=== PATIENT | female | born 1955 | race African-American/Black ===

== ENCOUNTER 2020-10-05 15:46 | Emergency (ER) | payer OTHER, SELFPAY ==
[2020-10-05 16:28] LABS: Bilirubin Moderate (Negative); Blood, Urine Trace (Negative); Clarity Slightly Cloudy (Clear); Glucose, Urine (Dipstick) Negative (Negative); Ketone, Urine Trace mg/dL (Negative); Leukocyte Trace (Negative); Nitrite Negative (Negative); Protein, Urine (Dipstick) > or equal to 300 mg/dL (Neg-Trace); Urobilinogen > or = 8.0 mg/dL (Less than 2)
[2020-10-05 16:43] LABS: Specific Gravity, Urine 1.035 (1.002-1.036)
[2020-10-05 16:45] LABS: Bacteria/HPF Rare-Few HPF (None Seen); RBC/HPF 0-3 HPF (0-3)
== END 2020-10-05 17:01 | disposition home or self-care (01) ==
LOC: BURERS 15:46
DX: N39.0 Urinary tract infection, site not specified (principal); I10 Essential (primary) hypertension
CPT/HCPCS: 81003; 81015; 99283

== ENCOUNTER 2021-04-24 14:40 | Emergency (ER) | payer OTHER ==
[~2021-04-24 14:40] MED LIST: Iopamidol 370 76% 100 ML VIAL ONE
[2021-04-24] MEDS ORDERED: Nitroglycerin 0.4 MG TAB 1 EACH ONE ×3 (14:59→15:49)
[2021-04-24 15:17] LABS: #Lymphocytes 1.1 thou/uL (1.20-3.40); #Monocytes 0.5 thou/uL (0.11-0.59); #Neutrophils 4.3 thou/uL (1.40-6.50); %Basophils 0.5 % (0.0-1.0); %Eosinophils 0.3 % (0.0-10.0); %Monocytes 7.8 % (0.0-10.0); %Neutrophils 73.5 % (42.0-75.0); Hemoglobin 10.5 g/dL (12.0-16.0); Mean Corpuscular HGB CONC 31.8 g/dL (32.0-36.0); Mean Corpuscular Hemoglobin 28.9 pg (27.0-31.0); Mean Corpuscular Volume 90.8 fL (78.0-98.0); Mean Platelet Volume 7.4 fL (7.4-10.4); Platelet Count 127 thou/uL (130-400); RBC Distribution Width 15.5 % (11.5-14.5); Red Blood Cell (RBC) Count 3.63 mill/uL (4.20-5.40); White Blood Cell (WBC) Count 5.8 thou/uL (4.8-10.8)
[2021-04-24 15:29] LABS: ALT (SGPT) 17 U/L (8-55); AST (SGOT) 21 U/L (5-34); Albumin 3.7 g/dL (3.4-4.8); Alkaline Phosphatase 44 U/L (40-110); Anion Gap 18 mmol/L (10-20); BUN (Urea Nitrogen) 15 mg/dL (9.8-20.1); Bilirubin, Total 0.8 mg/dL (0.2-1.2); Calc. Creatinine Clearance 0 mL/min (70-130); Calcium 9.1 mg/dL (7.8-10.44); Carbon Dioxide 21 mmol/L (23-31); Chloride 105 mmol/L (98-107); Globulin 4.1 g/dL (2.4-3.5); Glucose 98 mg/dL (80-115); Potassium 4.2 mmol/L (3.5-5.1); Protein, Total 7.8 g/dL (5.8-8.1); Sodium 140 mmol/L (136-145)
[2021-04-24] MEDS ORDERED: Furosemide 40 MG/4 ML VIAL ONE (15:38)
[2021-04-24] MEDS ORDERED: Nitroglycerin 2% Ointment 1 INCH/1 GM Packet ONE ×2 (15:38→15:39)
[2021-04-24] MEDS ORDERED: Aspirin Chewable 81 MG TAB ONE (15:38)
[2021-04-24 18:19] LABS: Troponin I Less than 0.010 ng/mL (< 0.028)
[2021-04-24] MEDS ORDERED: hydrOXYzine 25 MG TAB ONE (19:23)
[2021-04-24] MEDS ORDERED: Acetaminophen 500 MG TAB ONE (19:23)
[2021-04-24] MEDS ORDERED: niCARdipine 20MG In NaCl 20 MG/200 ML BAG ONE (20:22)
== END 2021-04-24 21:50 | disposition short-term general hospital (02) ==
LOC: BURERS 14:40
DX: I11.0 Hypertensive heart disease with heart failure (principal); I50.9 Heart failure, unspecified; R09.02 Hypoxemia; Z79.899 Other long term (current) drug therapy
CPT/HCPCS: 71045; 71275; 80053; 83880; 84443; 84484; 85025; 85379; 93005; 96365; 96375; J1940; Q9967